=== PATIENT | male | born 1965 | race Two or more races ===

== ENCOUNTER 2018-04-26 07:27 | Outpatient (CLI) | payer OTHER | END 2018-04-26 07:33 | disposition home or self-care (01) | LOC: RAD 07:27 | DX: A15.8 Other respiratory tuberculosis (principal); Z88.8 Allergy status to other drugs, medicaments and biological substances ==

== ENCOUNTER 2018-06-17 13:03 | Outpatient (CLI) | payer OTHER ==
[~2018-06-17 13:03] MED LIST: AVAPRO300 MG; METFORMIN HCL1000 M1
== END 2018-06-17 13:16 | disposition home or self-care (01) ==
LOC: RAD 13:03
DX: M25.551 Pain in right hip (principal); M25.552 Pain in left hip

== ENCOUNTER 2018-09-08 22:42 | Emergency (ER) | payer OTHER ==
[~2018-09-08] VITALS: Ht 175.3 cm; Wt 86.2 kg
[2018-09-09] MEDS ORDERED: ORPHENADRINE C100 MG PO (02:58)
[2018-09-09] MEDS ORDERED: KETO10TA2 PO (02:58)
== END 2018-09-09 03:13 | disposition home or self-care (01) ==
LOC: ER 22:42
DX: M75.52 Bursitis of left shoulder (principal); R07.89 Other chest pain